=== PATIENT | female | born 2005 | race Caucasian/White ===

== ENCOUNTER 2024-08-24 09:51 | Emergency (ER) | payer MEDICAID, OTHER ==
[~2024-08-24] VITALS: Ht 154.9 cm; Wt 59.5 kg
[2024-08-24 10:11] VITALS: TEMP 98.1
[2024-08-24] MEDS: methocarbamoL 500 MG TABLET PO ONE (13:49)
[2024-08-24] MEDS: PredniSONE 20 MG TABLET PO ONE (13:49)
[2024-08-24] MEDS: LIDOCAINE 5% TRANSDERMAL PATCH TD ONE (13:49)
[2024-08-24] MEDS: KETOROLAC TROMETHAMINE 30 MG/ML VIAL IM ONE (13:50)
[2024-08-24] MEDS ORDERED: METH-659 PO (14:24)
[2024-08-24] MEDS ORDERED: PRED-554 PO (14:24)
[2024-08-24] MEDS ORDERED: IBUP-1492 PO (14:24)
[2024-08-24 14:27] VITALS: BP 136/80; PULSE 92; RESP 16; O2SAT 98
== END 2024-08-24 14:31 | disposition home or self-care (01) ==
LOC: EMS 09:54
DX: S39.012A Strain of muscle, fascia and tendon of lower back, initial encounter (principal); X58.XXXA Exposure to other specified factors, initial encounter; Y93.89 Activity, other specified; Y92.89 Other specified places as the place of occurrence of the external cause; Y99.8 Other external cause status
CPT/HCPCS: 99284; 84703; 96372; J1885; J7512

== ENCOUNTER 2024-10-29 13:28 | Emergency (ER) | payer OTHER ==
[~2024-10-29] VITALS: Ht 154.9 cm; Wt 61.4 kg
[~2024-10-29 13:28] MED LIST: IBUP-1492 PO; METH-659 PO; PRED-554 PO
[2024-10-29 13:31] VITALS: TEMP 98.4
[2024-10-29 13:53] LABS: APPEARANCE,URINE CLEAR (CLEAR); GLUCOSE, URINE (UA) NEGATIVE (NEGATIVE); LEUKOCYTE ESTERASE ,URINE NEGATIVE (NEGATIVE); NITRATE,URINE NEGATIVE (NEGATIVE); OCCULT BLOOD,URINE NEGATIVE (NEGATIVE); SPECIFIC GRAVITIY, URINE 1.016 (1.003-1.030)
[2024-10-29 14:17] LABS: CALCIUM, TOTAL 9.0 mg/dL (8.8-10.5); CREATININE 0.65 mg/dL (0.60-1.30); GLOMERULAR FILTR. RATE CALC > 60 mL/min (>60); GLUCOSE,RANDOM 104 mg/dL (70-110); SODIUM SERUM 140 mmol/L (136-145); UREA NITROGEN, BLOOD 6 mg/dL (7-18)
[2024-10-29 14:18] LABS: PLATELET COUNT (AUTO) 377 K/uL (150-450); RED BLOOD CELL COUNT(AUTO) 4.14 MIL/uL (4.00-5.20); RED CELL DISTRIBUTION WIDTH 14.0 % (11.5-14.5); WHITE BLOOD COUNT (AUTO) 13.3 K/uL (4.5-11.0)
[2024-10-29 14:27] LABS: HCG,QUANTITATIVE < 1 mIU/mL (0-6)
[2024-10-29] MEDS: PB/HYOSCY/ATR/SCOP/LIDO/MAALOX 55 ML BOTTLE PO ONE (14:52)
[2024-10-29] MEDS ORDERED: DICY-1 PO (15:59)
[2024-10-29 16:10] VITALS: BP 128/74; PULSE 68; RESP 16; O2SAT 98
== END 2024-10-29 16:15 | disposition home or self-care (01) ==
LOC: EMS 13:28
DX: R19.7 Diarrhea, unspecified (principal); N89.8 Other specified noninflammatory disorders of vagina
CPT/HCPCS: 74018; 76705; 80048; 81003; 82150; 83690; 84702; 85025; 99284; 36415-L1; 36415-TC